=== PATIENT | female | born 1990 | race Two or more races ===

== ENCOUNTER 2024-01-08 15:04 | Emergency (ER) | payer MEDICAID, OTHER ==
[~2024-01-08] VITALS: Ht 180.3 cm; Wt 158.8 kg
[2024-01-08 16:20] LABS: Basophils # (auto) 0.1 10 ^3/uL (0-0.2); Basophils % (auto) 0.8 % (0.0-2.0); Eosinophils # (auto) 0.6 10 ^3/uL (0-0.8); Eosinophils % (auto) 7.9 % (0.0-7.0); Hematocrit 39.5 % (36.0-46.0); Lymphocytes # (auto) 1.7 10 ^3/uL (0.4-5.4); Lymphocytes % (auto) 22.2 % (10.0-50.0); Mean Corpuscular Hemoglobin 27.6 pg (28.0-32.0); Mean Corpuscular Hgb Conc. 32.9 g/dL (32.0-36.0); Mean Corpuscular Volume 83.9 fL (80.0-100.0); Monocytes # (auto) 0.6 10 ^3/uL (0-1.3); Neutrophils # (auto) 4.6 10 ^3/uL (1.6-8.6); Neutrophils % (auto) 61.1 % (37.0-80.0); Nucleated Red Blood Cells % 0.1 %; Red Blood Cells 4.71 10^6/uL (4.0-5.20); Red Cell Distribution Width 14.1 % (11.8-14.3); White Blood Cell 7.4 10^3/uL (4.4-10.8)
[2024-01-08 16:23] LABS: Chloride 107 mmol/L (98-107); Potassium 3.9 mmol/L (3.5-5.1); Sodium 140 mmol/L (136-145)
[2024-01-08 16:24] LABS: Anion Gap 2 (5-15); Calcium 8.8 mg/dL (8.7-10.4); Carbon Dioxide 31 mmol/L (20-30)
[2024-01-08 16:29] LABS: BUN/Creatinine Ratio 19.3 (10.0-20.0); Blood Urea Nitrogen 16 mg/dL (9-23); Glucose 89 mg/dL (74-106); Lipase 32 U/L (12-53)
[2024-01-08] MEDS ORDERED: ACET500T58 PO (21:06)
[2024-01-08] MEDS ORDERED: IBUP-1455 PO (21:06)
[2024-01-08] MEDS: KETOROLAC TROMETH 60MG/2ML VIAL IM ONE (21:54)
[2024-01-08 21:59] VITALS: BP 132/75; PULSE 71; RESP 18; O2SAT 97
== END 2024-01-08 22:01 | disposition home or self-care (01) ==
LOC: ER 15:04
DX: R07.89 Other chest pain (principal)
CPT/HCPCS: 36415; 71046; 80048; 83690; 84484; 85025; 93005; 96372; 99285; J1885

== ENCOUNTER 2024-01-15 10:38 | Inpatient (IN) | payer MEDICAID ==
[~2024-01-15] VITALS: Ht 180.3 cm; Wt 152.9 kg
[~2024-01-15 10:38] MED LIST: ACET500T58 PO; IBUP-1455 PO
[2024-01-15 11:32] LABS: Basophils # (auto) 0 10 ^3/uL (0-0.2); Basophils % (auto) 0.3 % (0.0-2.0); Eosinophils # (auto) 0 10 ^3/uL (0-0.8); Hematocrit 39.5 % (36.0-46.0); Hemoglobin 12.8 g/dL (12.2-16.2); Lymphocytes # (auto) 0.6 10 ^3/uL (0.4-5.4); Lymphocytes % (auto) 6.2 % (10.0-50.0); Mean Corpuscular Hemoglobin 27.4 pg (28.0-32.0); Mean Corpuscular Hgb Conc. 32.5 g/dL (32.0-36.0); Mean Corpuscular Volume 84.2 fL (80.0-100.0); Monocytes # (auto) 0.5 10 ^3/uL (0-1.3); Monocytes % (auto) 5.2 % (0.0-12.0); Neutrophils % (auto) 88.3 % (37.0-80.0); Red Blood Cells 4.69 10^6/uL (4.0-5.20); Red Cell Distribution Width 14.7 % (11.8-14.3); White Blood Cell 9.1 10^3/uL (4.4-10.8)
[2024-01-15 11:57] LABS: Alanine Aminotransferase 25 U/L (7-40); Albumin 4.3 g/dL (3.2-4.8); Alkaline Phosphatase 75 U/L (46-116); Anion Gap 6 (5-15); Aspartate Aminotransferase 30 U/L (13-40); Bilirubin, Total 0.2 mg/dL (0.2-1.0); Blood Urea Nitrogen 15 mg/dL (9-23); Calcium 8.6 mg/dL (8.7-10.4); Carbon Dioxide 30 mmol/L (20-30); Chloride 102 mmol/L (98-107); Glucose 143 mg/dL (74-106); Potassium 3.7 mmol/L (3.5-5.1); Sodium 138 mmol/L (136-145); Total Protein 6.9 g/dL (5.7-8.2)
[2024-01-15] MEDS: IPRATROPIUM BROM 0.5 MG/2.5ML INH SOL NEB ONE (13:03)
[2024-01-15] MEDS: ALBUTEROL SULF 2.5 MG/0.5ML(0.5%) NEB SOLN NEB ONE (13:03)
[2024-01-15 13:05] VITALS: PULSE 74; RESP 16; O2SAT 89
[2024-01-15] MEDS: methylPREDNISolone SOD SUCC 125 MG/2 ML VL IV ONE (13:16)
[2024-01-15] MEDS: cefTRIAXone 1GM/50ML D5W 50 ML IV ONE (13:17)
[2024-01-15] MEDS: ASPirin 325 MG TAB PO ONE (13:17)
[2024-01-15] MEDS ORDERED: ONDANSETRON HCL 4 MG/2 ML VIAL IV PRN (13:45)
[2024-01-15] MEDS ORDERED: ACETAMINOPHEN 325 MG TAB PO PRN (13:45)
[2024-01-15] MEDS ORDERED: ALBUTEROL SULF 2.5 MG/0.5ML(0.5%) NEB SOLN NEB PRN (13:45)
[2024-01-15 13:51] VITALS: BP 107/56; PULSE 72; RESP 20; TEMP 98.2; O2SAT 91
[2024-01-15 13:57] LABS: COVID19 ANTIGEN SOFIA FIA NEGATIVE (NEGATIVE); Rapid Influenza B Negative (Negative)
[2024-01-15 14:00] LABS: Rapid Influenza A Positive (Negative)
[2024-01-15] MEDS: SODIUM CHLORIDE 0.9% 1,000 ML IV SCH (14:14)
[2024-01-15 14:43] LABS: Triglycerides 96 mg/dL (< 150)
[2024-01-15 14:44] LABS: LDL Cholesterol 80 mg/dL (< 100)
[2024-01-15 14:45] LABS: Cholesterol 129 mg/dL (< 200); HDL Cholesterol 32 mg/dL (40-59)
[2024-01-15] MEDS: ALBUTEROL SULF 2.5 MG/0.5ML(0.5%) NEB SOLN NEB SCH (16:30)
[2024-01-15] MEDS: IPRATROPIUM BROM 0.5 MG/2.5ML INH SOL NEB SCH (16:30)
[2024-01-15 18:27] LABS: Free T3 1.98 pg/mL (2.3-4.2); Free T4 (Free Thyroxine) 0.95 ng/dL (0.89-1.76)
[2024-01-15 19:30] VITALS: PULSE 82; RESP 14; O2SAT 92
[2024-01-15] MEDS ORDERED: BUPR2MIS SL (19:43)
[2024-01-15] MEDS ORDERED: QUET150T2 PO (19:43)
[2024-01-15 19:53] VITALS: PULSE 78; PULSE 80; RESP 20; O2SAT 91; O2SAT 94
[2024-01-15 20:51] LABS: Urine Bacteria NONE SEEN /hpf (None Seen); Urine Blood Negative /uL (Negative); Urine Clarity HAZY (Clear); Urine Color Colorless (Yellow); Urine Protein, UAD 1+ (Negative); Urine Specific Gravity 1.017 (1.001-1.035); Urine Urobilinogen Normal (Negative); Urine WBC 3 /hpf (0 - 5)
[2024-01-15 21:00] LABS: Amphetamine Screen, Urine Neg (NEGATIVE); Benzodiazephine Screen, Urine Neg (NEGATIVE)
[2024-01-15 21:01] LABS: Barbiturate Scree,Urine Neg (NEGATIVE); Cannabinoid Screen, Urine Pos (NEGATIVE); Cocaine Screen, Urine Neg (NEGATIVE); Opiate Scree,Urine Neg (NEGATIVE); Phencyclidine Screen, Urine Neg (NEGATIVE)
[2024-01-15 22:19] VITALS: PULSE 65; RESP 18; O2SAT 92; O2SAT 94
[2024-01-15] MEDS: methylPREDNISolone SOD SUCC 40 MG/ML VL IV SCH (22:21)
[2024-01-15] MEDS: QUEtiapine FUMARATE 100 MG TAB PO SCH (22:21)
[2024-01-15] MEDS: HYDROcodone-ACET 5/325MG TAB PO PRN (22:21)
[2024-01-16] VITALS (14 sets, daily range): BP systolic 94–134; BP diastolic 56–69; PULSE 53–99; RESP 17–22; TEMP 97.7–98.8; O2SAT 90–98
[2024-01-16] MEDS ORDERED: CLON0.1T PO (02:44)
[2024-01-16] MEDS: ASPirin 81 mg TAB PO SCH (09:09)
[2024-01-16 09:21] LABS: Basophils # (auto) 0 10 ^3/uL (0-0.2); Eosinophils # (auto) 0 10 ^3/uL (0-0.8); Hematocrit 40.2 % (36.0-46.0); Hemoglobin 13.1 g/dL (12.2-16.2); Lymphocytes # (auto) 0.6 10 ^3/uL (0.4-5.4); Lymphocytes % (auto) 9.3 % (10.0-50.0); Mean Corpuscular Hemoglobin 27.5 pg (28.0-32.0); Mean Corpuscular Hgb Conc. 32.6 g/dL (32.0-36.0); Mean Corpuscular Volume 84.5 fL (80.0-100.0); Monocytes # (auto) 0.6 10 ^3/uL (0-1.3); Monocytes % (auto) 8.1 % (0.0-12.0); Neutrophils # (auto) 5.6 10 ^3/uL (1.6-8.6); Neutrophils % (auto) 82.6 % (37.0-80.0); Red Blood Cells 4.75 10^6/uL (4.0-5.20); Red Cell Distribution Width 14.8 % (11.8-14.3); White Blood Cell 6.8 10^3/uL (4.4-10.8)
[2024-01-16 09:43] LABS: Alanine Aminotransferase 19 U/L (7-40); Albumin 4.2 g/dL (3.2-4.8); Alkaline Phosphatase 67 U/L (46-116); Anion Gap 7 (5-15); Aspartate Aminotransferase 28 U/L (13-40); BUN/Creatinine Ratio 11.9 (10.0-20.0); Blood Urea Nitrogen 7 mg/dL (9-23); Calcium 9.1 mg/dL (8.5-10.1); Carbon Dioxide 29 mmol/L (20-30); Chloride 104 mmol/L (98-107); Glucose 114 mg/dL (74-106); Potassium 3.7 mmol/L (3.5-5.1); Sodium 140 mmol/L (136-145)
[2024-01-16 09:44] LABS: Bilirubin, Total 0.2 mg/dL (0.2-1.0); Total Protein 6.8 g/dL (5.7-8.2)
[2024-01-16] MEDS: OSELTAMIVIR 75 MG CAP PO ONE (12:40)
[2024-01-16] MEDS ORDERED: SERT100T PO (15:02)
[2024-01-16] MEDS: SERTRALINE HCL 50 MG TAB PO ONE (16:00)
[2024-01-16] MEDS: HYDROcodone-ACET 5/325MG TAB PO PRN (17:16)
[2024-01-16] MEDS ORDERED: ALBUTEROL SULF 2.5 MG/0.5ML(0.5%) NEB SOLN NEB PRN (20:15)
[2024-01-16] MEDS: OSELTAMIVIR 75 MG CAP PO SCH (22:08)
[2024-01-16] MEDS: ATORVASTATIN 20 MG TAB PO SCH (22:08)
[2024-01-17] VITALS (7 sets, daily range): BP systolic 106–138; BP diastolic 71–83; PULSE 49–58; RESP 20–22; TEMP 97.2–98.9; O2SAT 91–98
[2024-01-17 07:22] LABS: Basophils # (auto) 0 10 ^3/uL (0-0.2); Basophils % (auto) 0.1 % (0.0-2.0); Eosinophils # (auto) 0 10 ^3/uL (0-0.8); Eosinophils % (auto) 0.4 % (0.0-7.0); Hematocrit 39.8 % (36.0-46.0); Lymphocytes # (auto) 1.4 10 ^3/uL (0.4-5.4); Lymphocytes % (auto) 27.5 % (10.0-50.0); Mean Corpuscular Hemoglobin 27.3 pg (28.0-32.0); Mean Corpuscular Hgb Conc. 32.7 g/dL (32.0-36.0); Mean Corpuscular Volume 83.5 fL (80.0-100.0); Monocytes # (auto) 0.5 10 ^3/uL (0-1.3); Monocytes % (auto) 9.6 % (0.0-12.0); Neutrophils # (auto) 3.2 10 ^3/uL (1.6-8.6); Neutrophils % (auto) 62.4 % (37.0-80.0); Nucleated Red Blood Cells % 0.2 %; Red Blood Cells 4.77 10^6/uL (4.0-5.20); Red Cell Distribution Width 14.8 % (11.8-14.3); White Blood Cell 5.1 10^3/uL (4.4-10.8)
[2024-01-17 07:28] LABS: Alanine Aminotransferase 18 U/L (7-40); Albumin 3.9 g/dL (3.2-4.8); Alkaline Phosphatase 60 U/L (46-116); Anion Gap 6 (5-15); Aspartate Aminotransferase 23 U/L (13-40); BUN/Creatinine Ratio 19.7 (10.0-20.0); Blood Urea Nitrogen 12 mg/dL (9-23); Calcium 8.7 mg/dL (8.5-10.1); Carbon Dioxide 29 mmol/L (20-30); Chloride 106 mmol/L (98-107); Glucose 98 mg/dL (74-106); LDL Cholesterol 86 mg/dL (< 100); Potassium 3.1 mmol/L (3.5-5.1); Sodium 141 mmol/L (136-145); Triglycerides 152 mg/dL (< 150)
[2024-01-17 07:29] LABS: Bilirubin, Total 0.2 mg/dL (0.2-1.0); Cholesterol 129 mg/dL (< 200); HDL Cholesterol 25 mg/dL (40-59); Total Protein 6.6 g/dL (5.7-8.2)
[2024-01-17] MEDS ORDERED: OSEL75CA5 PO (09:55)
[2024-01-17] MEDS ORDERED: ATOR40TA52 PO (09:55)
[2024-01-17] MEDS: SERTRALINE HCL 50 MG TAB PO SCH (10:14)
== END 2024-01-17 13:30 | disposition home or self-care (01) | DRG 133 ==
LOC: ER 10:38 → OVERFLOW 13:36 → WEST WING 01-16 01:46 → TELE-WESTW 01-16 07:37
PROVIDERS: ADMIT Internal Medicine Geriatric Medicine; ATTEND Internal Medicine Geriatric Medicine
PROC: 5A09357 Assistance with Respiratory Ventilation, Less than 24 Consecutive Hours, Continuous Positive Airway Pressure (ICD-10-PCS; principal; 2024-01-15)
DX: J96.00 Acute respiratory failure, unspecified whether with hypoxia or hypercapnia (principal); I21.A1 Myocardial infarction type 2; J10.1 Influenza due to other identified influenza virus with other respiratory manifestations; R73.9 Hyperglycemia, unspecified; E78.5 Hyperlipidemia, unspecified; I10 Essential (primary) hypertension; F15.10 Other stimulant abuse, uncomplicated; G47.33 Obstructive sleep apnea (adult) (pediatric); E66.01 Morbid (severe) obesity due to excess calories; F17.210 Nicotine dependence, cigarettes, uncomplicated; Z20.822 Contact with and (suspected) exposure to COVID-19; Z68.42 Body mass index [BMI] 45.0-49.9, adult; Z88.2 Allergy status to sulfonamides; Z88.8 Allergy status to other drugs, medicaments and biological substances; Z71.3 Dietary counseling and surveillance; Z79.82 Long term (current) use of aspirin
CPT/HCPCS: 36415; 71045; 80053; 80061; 80307; 81001; 83036; 83735; 83880; 84439; 84443; 84481; 84484; 84702; 85025; 85379; 87070; 87077; 87186; 87205; 87426; 87804; 93005; 93306; 94640; 94660; G0378